=== PATIENT | male | born 1935 | race Caucasian/White ===

== ENCOUNTER → 2017-10-16 | Outpatient (CLI) | payer OTHER | LOC: FIMAGING 08:36 | PROVIDERS: ATTEND Physician Assistant | DX: M54.16 Radiculopathy, lumbar region (principal); M43.16 Spondylolisthesis, lumbar region; M51.36 Other intervertebral disc degeneration, lumbar region ==

== ENCOUNTER 2018-07-26 12:15 | Inpatient (IN) | payer OTHER ==
[2018-09-26] MEDS ORDERED: LR 1,000 ML IV ONE (05:55)
[2018-09-26 06:41] LABS: PLATELET COUNT 279 10^3/uL (150-400)
[2018-09-26] MEDS ORDERED: CHLORHEXIDINE GLUC HIBICLENS 118 ML BTL TP ONE (06:53)
[2018-09-26] MEDS ORDERED: BUPIVACAINE 0.25% 30 ML SDV ONE (06:53)
[2018-09-26] MEDS ORDERED: BACITRACIN 50,000 UNITS/10 ML SYR IRR ONE ×2 (06:54→10:59)
[2018-09-26] MEDS ORDERED: THROMBIN (BOVINE) 5,000 UNIT VIAL TP ONE (06:54)
[2018-09-26] MEDS ORDERED: DEPO METHYLPREDNISOLONE 40 MG/ML SDV ONE (06:54)
[2018-09-26] MEDS ORDERED: EPINEPHrine 1 MG/ML INJ ONE (06:55)
[2018-09-26] MEDS ORDERED: GABAPENTIN 300 MG CAP PO ONE (06:59)
[2018-09-26] MEDS ORDERED: ceFAZolin 2 GM/DEXTROSE 100 ML IV ONE (06:59)
[2018-09-26] MEDS ORDERED: ACETAMINOPHEN 500 MG TAB PO ONE (06:59)
--- NOTE | 2018-09-26 07:02 | PDHPUP ---
History & Physical Update H&P update statement: This history and physical update is based on an assessment of the patient which was completed after admission or registration (within 24 hours), but prior to the surgery/procedure. H&P update: H&P reviewed & patient examined, no change in patient's condition since H&P completed
--- NOTE | 2018-09-26 07:06 | PDANEPAE ---
ANE History of Present Illness 83 y/o male here for lumbar decompression for back pain. ANE Past Medical History - Cardiovascular History Hx Hypertension: Yes Hx Arrhythmias: No Hx Chest Pain: No Hx Coronary Artery / Peripheral Vascular Disease: Yes Hx CHF / Valvular Disease: Yes Hx Palpitations: No Cardiovascular History Comment: AORTIC STENOSIS - Pulmonary History Hx COPD: No Hx Asthma/Reactive Airway Disease: No Hx Recent Upper Respiratory Infection: No Hx Oxygen in Use at Home: No Hx Sleep Apnea: No Sleep Apnea Screening Result - Last Documented: Positive - Neurologic History Hx Cerebrovascular Accident: No Hx Seizures: No Hx Dementia: No - Endocrine History Hx Diabetes: No - Renal History Hx Renal Disorders: No - Liver History Hx Hepatic Disorders: No - Neurological & Psychiatric Hx Hx Neurological and Psychiatric Disorders: Yes Neurological / Psychiatric History Comment: DEPRESSION/ANXIETY - Cancer History Hx Cancer: No - Congenital Disorder History Hx Congenital Disorders: No - GI History Hx Gastrointestinal Disorders: No - Other Health History Other Health History: SPINAL STENOSIS. N/T LYNETTE LEGS/FEET RT WORSE. MISSING UPPER LT FRONT TOOTH - Chronic Pain History Chronic Pain: Yes (LOWER LUMBAR AND LYNETTE LEGS) - Surgical History Prior Surgeries: LYNETTE TOTAL HIP. LYNETTE ING HERNIA. LT CATARACT ANE Review of Systems Review of Systems: - Exercise capacity Exercise capacity: >=4 METS METS (RN): 3 METS ANE Patient History - Allergies Allergies/Adverse Reactions: No Allergies [NKDA] Allergy (Verified 10/06/16 02:41) - Home Medications Home Medications: Hydrochlorothiazide [HCTZ (*)] 25 mg PO SUMOTUSA@08 10/06/16 [Last Taken ] Lisinopril 20 mg PO BID 10/06/16 [Last Taken 09/25/18] - NPO status NPO Since - Liquids (Date): 09/25/18 NPO Since - Liquids (Time): 18:00 NPO Since - Solids (Date): 09/25/18 NPO Since - Solids (Time): 18:00 - Smoking Hx Smoking Status: Never smoked ANE Labs/Vital Signs - Labs Result Diagrams: 09/26/18 06:25 09/26/18 06:25 - Vital Signs Blood Pressure: 127/78 Heart Rate: 76 Respiratory Rate: 16 O2 Sat (%): 93 Height: 170.18 cm Weight: 73.482 kg ANE Physical Exam - Airway Neck exam: FROM Mallampati Score: Class 3 - Pulmonary Pulmonary: clear to auscultation - Cardiovascular Cardiovascular: systolic murmur - ASA Status ASA Status: IV ANE Anesthesia Plan Lines/Monitors: arterial line (Discussed risks and benefits with specific focus on his severe aortic stenosis. Pt desires to proceed.)
[2018-09-26] MEDS ORDERED: fentaNYL 100 MCG/2 ML INJ ONE (07:16)
[2018-09-26] MEDS ORDERED: DEXMEDETOMIDINE HCL 400 MCG in NS 100 ML IV SCH (07:30)
[2018-09-26] MEDS ORDERED: oxyCODONE IR 5 MG TAB PO PRN (07:38)
[2018-09-26] MEDS ORDERED: LACTULOSE 20 GM/30 ML UDCUP PO PRN (07:38)
[2018-09-26] MEDS ORDERED: BISACODYL 10 MG SUPP PR PRN (07:38)
[2018-09-26] MEDS ORDERED: ONDANSETRON 4 MG/2 ML VIAL IVP PRN (07:38)
[2018-09-26] MEDS ORDERED: ONDANSETRON DISINTEGRATING 4 MG TAB PO PRN (07:38)
[2018-09-26] MEDS ORDERED: diphenhydrAMINE 25 MG CAP PO PRN (07:38)
[2018-09-26] MEDS ORDERED: METHOCARBAMOL 750 MG TAB PO PRN (07:38)
[2018-09-26] MEDS ORDERED: MAGNESIUM HYDROXIDE 30 ML UDCUP PO PRN (07:38)
[2018-09-26] MEDS ORDERED: POLYETHYLENE GLYCOL 3350 17 GM PKT PO PRN (07:38)
[2018-09-26] MEDS ORDERED: PROPOFOL/EMULSION 500 MG/50 ML BOTTLE IV ONE (08:15)
[2018-09-26] MEDS ORDERED: PROPOFOL 200 MG/20 ML VIAL ONE (10:10)
[2018-09-26] MEDS ORDERED: fentaNYL 100 MCG/2 ML INJ IVP PRN (10:57)
[2018-09-26] MEDS ORDERED: PROMETHAZINE HCL 25 MG/ML INJ IVP PRN (10:57)
[2018-09-26] MEDS ORDERED: LR 500 ML IV PRN (10:57)
[2018-09-26] MEDS ORDERED: NALOXONE HCL 0.4 MG/ML INJ IVP PRN (10:57)
[2018-09-26] MEDS ORDERED: MEPERIDINE 25 MG/0.5 ML AMP IVP PRN (10:57)
--- NOTE | 2018-09-26 11:39 | POSTOPPROG ---
Post Op Note Date of Operation: 09/26/18 Surgeon: Mago Castaneda Wound Care Nurse: Ruby Montano NP Anesthesiologist: Dr Gonzalez Anesthesia: GET(General Endotracheal) Pre-op Diagnosis: Lumbar stenosis Procedure: L3-4, L4-5, L5-S1 Laminectomy Inf/Abcess present in the surg proc area at time of surgery?: No Depth: Deep Incisional (Fascial) EBL: 100-500 Total fluids administered: see anesthesia Complications: none Date of Surgery: 09/26/18 Post Op Day: 0 Assessment/Plan: Assessment: 83 yr old M s/p L3-4, L4-5, L5-S1 laminectomy for low back pain and right>left leg pain Plan: -Admit med [facility] [place] for obs -PT/OT -Pain management -Please call neurosurgery with any questions/concerns Subjective: waking up in PACU Objective: waking up in PACU No facial droop LYNNE x4 5/5 BUE, BLE Sensation intact to light touch BLE Dressing CDI Appropriate Neuro Check Frequency Ordered: Yes
[2018-09-26] MEDS: PHENYLEPHRINE HCL 100 MCG/ML SYR IVP PRN ×8 (11:50→12:35)
[2018-09-26] MEDS ORDERED: PHENYLEPHRINE HCL 100 MCG/ML SYR ONE (11:55)
[2018-09-26] MEDS ORDERED: PHENYLEPHRINE HCL 50 MG in D5W 250 ML IV SCH (12:00)
[2018-09-26] MEDS: PHENYLEPHRINE HCL 50 MG in NS 250 ML IV SCH (12:41)
--- NOTE | 2018-09-26 13:53 | GOP ---
DATE OF OPERATION: 09/26/2018 SURGEON: Alonzo Castaneda MD NEUROSURGEON: Alonzo Castaneda MD DOCUMENT MANAGEMENT SPECIALIST: Ruby Montano, Nurse Practitioner PREOPERATIVE DIAGNOSIS: Severe lumbar spondylosis, severe lumbar stenosis, bilateral lumbosacral rad iculopathy, right worse than left. POSTOPERATIVE DIAGNOSIS: Severe lumbar spondylosis, severe lumbar stenosis, bilateral lumbosacral ra diculopathy, right worse than left. PROCEDURE PERFORMED: L3-4, L4-5, L5-S1 bilateral laminectomies with decompression of the bilateral r ecesses and foramen at L3-4, 4-5, 5-1 ([id number], [id number] x2), microscope. FINDINGS: The patient did appear to have a small pars defect on the left at L5. SPECIMENS: None. ESTIMATED BLOOD LOSS: About 150 cc. INDICATIONS: The patient is an elderly gentleman in his 80s who had terrible bilateral lumbosacral r adiculopathy and the right side was much worse than the left. An MRI demonstrated findings throughou t the lumbar spine really at every level L1-2, 2-3, 3-4, 4-5, 5-1. He had significant stenosis at L3 -4, 4-5, 5-1, and there was actually very severe stenosis at L2-3 as well, but it really was not comp arable to what we saw at L3-4, 4-5, 5-1. I contemplated adding this level as well, but I thought morgan lly a 4 level laminectomy was a bit much for him given his age. The risks of continued symptoms nerv e injury, spinal fluid leak was discussed. He knew there was a chance that surgery would fail to giv e him benefit, and certainly, there was significant foraminal stenosis, worse on the left at L L3-4 a nd on the right at L4-5, 5-1, and with these findings, the success would be higher if one considered instrumented fusion, but given his advanced age, I thought it was best to try to avoid this. He knew the plan was simply to try to achieve what we could with the simple operation with decompressions al one and he did want to proceed with this. DESCRIPTION OF PROCEDURE: The patient was taken to the operating room, placed in supine position. G eneral anesthesia was begun. He was flipped prone onto the Geo frame. Care was taken to pad all points of contact. His back was sterilely prepped and draped in usual fashion. Localizing x-ray was taken. We made a midline incision from the spinous process of L2 to the spinous process of S1. The subcutaneous tissue was dissected using Bovie cautery down to the fascia and a s ubperiosteal dissection was made down the lamina of L3, L4, L5, and S1. Self-retaining retractors pl aced. Operating microscope was introduced. We removed the complete lamina of L4 and L5 and the infe rior lamina of L3. We performed bilateral medial facetectomies. As we working on the left at L5-S1, there was the hint that the IAP of L5 was not attached to the pedicle. I did not expose the entire pars interarticularis, it just simply wobbled as one was drilling in that area. We went ahead and continued with our decompression, performed bilateral medial facetectomies there an d each of the other levels. There was really severe stenosis. 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 The fat was stuck to the dura in multiple locations a nd it made decompressing more difficult because as we would insert our Kerrison under the compressive elements, the fat many times would be carried with Kerrison, but the dura was very stuck to the fat. We took great care and we were able to avoid a durotomy, and we eventually took out a lot of this e pidural fat. There was very significant compression on the right side at L5-S1, L4-5, and very severe left-sided s tenosis at L3-4, and we really got great decompressions on each side. We shot a final x-ray confirmi ng the extent of the decompression, and then closed the incision in multiple layers using Vicryl sutu res. Steri-Strips were applied to the skin, and the patient was reversed from anesthesia, extubated, and transferred to recovery room in stable condition. There were no complications. COMPLICATIONS: None. /[id number]/MODL
[2018-09-26] MEDS: ACETAMINOPHEN 500 MG TAB PO SCH ×2 (13:54→21:00)
[2018-09-26] MEDS: NS 1,000 ML IV SCH (13:56)
--- NOTE | 2018-09-26 14:44 | POSTANESTH ---
Post Anesthetic Evaluation Respiratory Status: Normal, Stable Level of Consciousness/Mental Status: Can Participate in Eval, Alert and Oriented Pain Control: Adequate, Prn Tx Ordered Nausea/Vomiting Control: Adequate, Prn Tx Ordered Complications Possibly Related to Anesthesia: None Noted (Pt with asymptomatic hypotension, unclear etiology. Giving IVF's. Will start phenylephrine infusion given that the patient has severe . Denies chest pain/dypsnea. Appears comfortable.)
[2018-09-26] MEDS: SENNOSIDES/DOCUSATE SODIUM TAB PO SCH ×2 (14:59→20:59)
[2018-09-26] MEDS: FAMOTIDINE 20 MG TAB PO SCH ×2 (15:00→20:58)
[2018-09-26] MEDS: CEFUROXIME 1,500 MG in NS 50 ML IV SCH ×2 (16:13→23:51)
[2018-09-26] MEDS ORDERED: NS BOLUS 500 ML (Wide open) IV ONE (17:30)
[2018-09-26] MEDS ORDERED: ALTEPLASE 2 MG VIAL IVP PRN (17:44)
--- NOTE | 2018-09-26 20:01 | GCON ---
CRITICAL CARE CONSULTATION DATE OF CONSULTATION: 09/26/2018 HISTORY OF PRESENT ILLNESS: This patient is an 83-year-old male with a known history of severe aorti c stenosis that has been quite stable for at least a year who has also been dealing with significant sciatica and radiculopathy who has tried multiple injections in the past and subsequently underwent a n L3-S1 laminectomy and decompression today. The surgery itself was uncomplicated. The patient was extubated and brought to the intensive care unit, but his blood pressure was a little bit low postope ratively. He was started on a phenylephrine drip with a goal systolic blood pressure of about 120. He normally has hypertension and takes lisinopril as well as hydrochlorothiazide. It is not clear to me if he took those medications today. He remains on about 80 mg of phenylephrine at this time. He has a mean arterial pressure of about 61 with a systolic of about 108. He is asymptomatic with this , but his blood pressure apparently dropped to some unknown amount when he sat up in bed. He denies any significant postoperative pain at this time. There is no chest pain, palpitations, or syncope si nce he arrived from surgery and feels quite well. No shortness of breath or cough as well. REVIEW OF SYSTEMS: Otherwise, negative. PAST MEDICAL HISTORY: 1. Aortic stenosis as described above. He had an echocardiogram on 08/29/2018, showing severe aorti c stenosis with a peak pressure of about 61, a mean of 30, but an ejection fraction of 59% as well as diastolic dysfunction. 2. Spinal stenosis. 3. Radiculopathy as described above. 4. BPH. 5. Coronary artery disease. 6. Hypertension. 7. Peripheral neuropathy. 8. Pneumonia in the past. 9. Pulmonary nodule. SOCIAL HISTORY: He is a previous smoker, but not current. No recreational drugs, but occasional alc ohol. FAMILY HISTORY: Cancer. MEDICATIONS: At this time include: 1. Dulcolax. 2. Cefuroxime. 3. Benadryl p.r.n. 4. Lovenox. 5. Pepcid. 6. Hydrochlorothiazide to start tomorrow. 7. Lactulose p.r.n. 8. Lisinopril to start today which is being held. 9. Robaxin. 10. Morphine. 11. Zofran. 12. Oxycodone. 13. Phenylephrine. 14. MiraLAX. 15. Senokot. 16. Normal saline. PHYSICAL EXAM: VITAL SIGNS: He was afebrile. He had a blood pressure of 108/70 on phenylephrine. Heart rate was in the 80s, respirations in the 20s. Oxygen saturation was 98% on room air. GENERAL: He is a very pleasant man in no apparent distress. Awake and alert, oriented x3, able to speak in full sentences but not using accessory muscles for breathing. HEENT: Pupils equally round and react radha to light, nonicteric and noninjected. Mucous membranes are moist without erythema or exudate. N FORTUNATO: Supple without adenopathy or jugular vein distention. LUNGS: Breath sounds were clear to ausc ultation bilaterally without wheezes, rubs, or rales. HEART: Regular rate and rhythm with an obviou s systolic murmur. ABDOMEN: Otherwise, soft, nontender, nondistended without hepatosplenomegaly. E XTREMITIES: No clubbing, cyanosis, or edema. NEUROLOGIC: Exam nonfocal including cranial nerves an d deep tendon reflexes. SKIN: Warm and dry without evidence of rash. OBJECTIVE DATA: Preoperative labs with hematocrit of 35, normal white count and platelets. BMP was also normal. Also reviewed his pre-hospital records in some detail. ASSESSMENT AND PLAN: 1. Hypotension. This certainly is likely to be related to hypovolemia or prolonged effects of anest hesia. I see no evidence to support adrenal insufficiency or an acute coronary syndrome at this time . Certainly, not septic shock. Because of his aortic stenosis, advanced age, and diastolic dysfunct ion, I think we need to be gentle with fluids; although with the aortic stenosis, it would be smarter to error in slightly hypervolemic rather than hypovolemic side to minimize increasing his gradient a cross his valve. Subsequently, we will start with NICOM and use 250 mL boluses of normal saline. I do not think blood is an issue here since his estimated blood loss was only 150. His blood pressure parameters have been set by Neurosurgery looking for a systolic of at least 120. We will try to get there with some volume. Phenylephrine, I think is an adequate drug for this. He did preop clearance from Cardiology and no valvular surgery was recommended prior to this. 2. Hypertension. Obviously, hold his hydrochlorothiazide and lisinopril for now until his blood pre ssure goals have been met and he is off his pressors. 3. Status post back surgery. Other than hypotension, he appears to be quite stable at this time and, hopefully, this will result i n significant pain control for him. A total of about 35 minutes of critical care time was required for this patient. /[id number]/MODL
[2018-09-26] MEDS: LISINOPRIL 20 MG TAB PO SCH (20:50)
[2018-09-27] MEDS: NS 1,000 ML IV SCH (01:15)
[2018-09-27] MEDS: PHENYLEPHRINE HCL 50 MG in NS 250 ML IV SCH (03:15)
[2018-09-27 04:29] LABS: PLATELET COUNT 223 10^3/uL (150-400)
[2018-09-27] MEDS ORDERED: CEPACOL LOZENGE PO PRN (05:30)
[2018-09-27] MEDS: ACETAMINOPHEN 500 MG TAB PO SCH ×3 (05:43→21:08)
[2018-09-27] MEDS ORDERED: HYDROCHLOROTHIAZIDE 25 MG TAB PO SCH (08:00)
--- NOTE | 2018-09-27 08:33 | NEUSURGPN ---
Assessment/Plan: Assessment: 83 yr old M s/p L3-4, L4-5, L5-S1 laminectomy for low back pain and right>left leg pain POD1 Plan: -Admit med surgery -PT/OT -Pain management -Wean pressors -May transfer to the floor later today -Please call neurosurgery with any questions/concerns Subjective: low back tenderness, states leg pain has improved Objective: waking up in PACU No facial droop LYNNE x4 5/5 BUE, BLE Sensation intact to light touch BLE Dressing CDI - Physician Discussed Patient with : [facility] Physical Exam - Vitals, I&O, Labs I and O 09/26/18 09/27/18 09/28/18 05:59 05:59 05:59 Intake Total 5167.4 Output Total 1550 275 Balance 3617.4 -275 Weight 73.482 kg Intake: Oral (ml) 1540 IV Intake (ml) 2450 IV Infused (ml) 1177.4 Cefuroxime 1,500 mg In Ns 50 50 ml @ 200 mls/hr IV Q8H SANAM Rx#:[id number] Ns 1,000 ml @ 75 mls/hr 846 IV CONT SANAM Rx#: [id number] Phenylephrine HCl 50 mg 281.4 In D5w 250 ml @ Titrate IV CONT SANAM Rx#: [id number] Output: Urine (ml) 1400 275 Bedside Commode 1400 275 Urinal 0 Estimated Blood Loss (ml) 150 Other: Number of Voids Bedside Commode 1 Post Void Residual Scan Volume (ml) Bedside Commode 323 Vital Signs Temp Pulse Resp BP Pulse Ox 37.4 C 73 14 126/58 H 95 09/27/18 04:00 09/27/18 06:00 09/27/18 06:00 09/27/18 06:00 09/27/18 06:00 Laboratory Results 09/27/18 04:10 09/27/18 04:10 ICD10 Worksheet Patient Problems: Problems Problem Status Onset Aortic stenosis Acute Elevated troponin Acute Mitral regurgitation Acute Pneumonia Acute Sepsis Acute
[2018-09-27] MEDS: SENNOSIDES/DOCUSATE SODIUM TAB PO SCH ×2 (08:59→21:07)
[2018-09-27] MEDS: FAMOTIDINE 20 MG TAB PO SCH ×2 (09:00→21:08)
--- NOTE | 2018-09-27 09:28 | ASMTCMCOM ---
CM Note CM Note Notes: 83yo male admitted for lumbar stenosis. He has a Hx of Aortic stenosis, CAD, BPH, HTN, PN, Radiculopathy and a former smoker. Patient had L 3/4, 4/5, L5-S1 Lami. Therapies to eval for discharge needs. CM to follow. Date Signed: 09/27/2018 09:27 AM Electronically Signed By:Cara Callaway LCSW
[2018-09-27] MEDS: LISINOPRIL 20 MG TAB PO SCH (10:19)
--- NOTE | 2018-09-27 13:35 | PDINTPN ---
Concession Attendant Progress Note Assessment/Plan: 83 M with known severe aortic stenosis and intractable back pain and radiculopathy s/p L3-S1 decompression laminectomy 09/26 complicated by post op hypotension requiring low dose phenylephrine that responded to IVF. * Hypotension- likely related to volume shifts from surgery. No evidence of blood loss, ACS, adrenal insufficiency, sepsis. Irineo nearly off and anticipate this will come off today * - assuming hemodynamic stability, can resume home meds. * likely to floor this afternoon Subjective: feels great without complaints Objective: Vital Signs Temp Pulse Resp BP Pulse Ox 36.9 C 73 20 90/38 L 97 09/27/18 08:00 09/27/18 13:00 09/27/18 13:00 09/27/18 13:00 09/27/18 13:00 Laboratory Results 09/27/18 04:10 09/27/18 04:10 09/26/18 09/27/18 09/28/18 05:59 05:59 05:59 Intake Total 5167.4 Output Total 1550 275 Balance 3617.4 -275 Physical Exam - Physical Exam General Appearance: WD/WN, alert, no apparent distress EENT: PERRL/EOMI, No scleral icterus (R), No scleral icterus (L) Neck: non-tender, supple Respiratory: lungs clear, normal breath sounds, No respiratory distress, No accessory muscle use Cardiac/Chest: regular rate, rhythm, systolic murmur, No edema Abdomen: non-tender, soft, No distended Skin: normal color, warm/dry, No cyanosis Lymphatic: no adenopathy Extremities: No pedal edema Neuro/Psych: alert, normal mood/affect, oriented x 3 ICD10 Worksheet Patient Problems: Problems Problem Status Onset Aortic stenosis Acute Elevated troponin Acute Mitral regurgitation Acute Pneumonia Acute Sepsis Acute
--- NOTE | 2018-09-27 15:22 | ASMTCMCOM ---
CM Note CM Note Notes: Patient and live in [place], [place]. They would like to go to the SNF in [facility]. Sent a referral to the [facility] SNF and left a message for their admissions-Selam [phone]. Date Signed: 09/27/2018 03:21 PM Electronically Signed By:Cara Callaway LCSW
--- NOTE | 2018-09-27 16:52 | PDMN ---
Medical Necessity Medical necessity: [facility] S830 Lumbar Laminectomy: 83 yo s/p lumbar lami, initially OBS but during post op course developed hypotension needing vasopressors to maintain BP. Change to IP status per MD order 08/27/18 @1545 as pt still on IV vasopressors, H&H did drop to 10.4/294 rom 12.8/35.8, requires another MN to wean off pressors, PT/OT eval and pain management. Hx spinal stenois, radiculopathy, BPH, CAD, HTN, periph neuropathy, pneumonia, pulm nodule
[2018-09-28] MEDS: ACETAMINOPHEN 500 MG TAB PO SCH (05:45)
--- NOTE | 2018-09-28 07:31 | NEUSURGPN ---
Date of Surgery: 09/26/18 Post Op Day: 2 Assessment/Plan: Assessment: 83 yr old M s/p L3-4, L4-5, L5-S1 laminectomy for low back pain and right>left leg pain POD#2 Plan: -Patient off akira gtt since 2am, BP stable -PT/OT -Pain management-expected incisional pain, BLE pain improved since surgery -Patient may dc home today with home health care vs SNF pending PT recommendation -Patient seen by Dr Castaneda as well -Please call neurosurgery with any questions/concerns Subjective: Doing well, expected lower back pain. Leg pain improved Objective: AxO x4 PERRLA MAEx4 5/5 BUE, BLE Dressing CDI Neuro Check Frequency: per routine Urinary Catheter in Place: No - Physician Patient Seen by : [facility] Physical Exam - Vitals, I&O, Labs I and O 09/27/18 09/28/18 09/29/18 05:59 05:59 05:59 Intake Total 5167.4 1447 Output Total 1550 1075 Balance 3617.4 372 Weight 73.482 kg Intake: Oral (ml) 1540 300 IV Intake (ml) 2450 IV Infused (ml) 1177.4 1147 Cefuroxime 1,500 mg In Ns 50 50 ml @ 200 mls/hr IV Q8H SANAM Rx#:[id number] Ns 1,000 ml @ 75 mls/hr 846 1046 IV CONT SANAM Rx#: [id number] Phenylephrine HCl 50 mg 281.4 101 In D5w 250 ml @ Titrate IV CONT SANAM Rx#: [id number] Output: Urine (ml) 1400 1075 Bedside Commode 1400 1075 Urinal 0 Estimated Blood Loss (ml) 150 Other: Number of Voids Bedside Commode 1 4 Post Void Residual Scan Volume (ml) Bedside Commode 323 Vital Signs Temp Pulse Resp BP Pulse Ox 36.6 C 80 18 127/56 H 98 09/27/18 20:00 09/28/18 05:48 09/28/18 05:48 09/28/18 05:48 09/28/18 05:48 Laboratory Results 09/27/18 04:10 09/27/18 04:10 ICD10 Worksheet Patient Problems: Problems Problem Status Onset Aortic stenosis Acute Elevated troponin Acute Mitral regurgitation Acute Pneumonia Acute Sepsis Acute
--- NOTE | 2018-09-28 07:37 | PDIAF ---
- Diagnosis Diagnosis: Lumbar stenosis, S/P L3-4, L4-5, L5-S1 laminectomy Code Status: Full Code - Medication Management Discharge Medications: electronically signed and located in the Home Medication List. PICC Care - Routine: N/A - Orders Services needed: Home Care, Physical Therapy, Occupational Therapy Home Care Face to Face: I certify that this patient was under my care and that I had the required [id number] encounter meeting the encounter requirements on the discharge day. My findings support the fact that the patient is homebound as defined in Home Care Face to Face Continued: CMS Chapter 7 Medicare Benefits Manual 30.1.1 , The condition of the patient is such that there exists a normal inability to leave home and consequently, leaving home would require a considerable and taxing effort. Isolation Type: None Diet Recommendation: no restrictions on diet Diet Texture: Regular Texture Diet Teague: Not applicable Wound Care Instructions: Remove outer dressing 09/29/18. Leave steri strips in place Activity/Weight Bearing Restrictions: Do not lift greater than 10 pounds. No bending or twisting at the waist Additional Instructions: No bending or twisting at waist Do no lift greater than 10 pounds Ok to remove outer dressing tomorrow 09/29/[address] Ok to shower 09/29/18 - Follow Up Care Current Providers and Referrals: Chris Morrow MD [Primary Care Provider] - Mago Castaneda MD [Medical Doctor] - follow up in 2 weeks
[2018-09-28 08:25] VITALS: BP 125/62
[2018-09-28] MEDS: SENNOSIDES/DOCUSATE SODIUM TAB PO SCH (08:47)
[2018-09-28] MEDS: FAMOTIDINE 20 MG TAB PO SCH (08:47)
--- NOTE | 2018-09-28 11:10 | ASMTDCNOTE ---
Case Management Discharge Discharge Order Complete? Answers: Yes Patient to Obtain Answers: Independently Medications Transportation Arranged Answers: Family/Friends Transport will Pick (Date 09/28/2018 12:00 AM & Time) Faxed Final Orders Answers: Yes Notes: [facility] Agency/Facility Transfer Answers: Yes Notes: [facility] Report Printed & Faxed to Receiving Agency Family Notified Answers: Yes Notes: , Khadra Discharge Comments Notes: Patient is ready for d/c. Therapies recommended SNF rehab, however, patient prefers to do home health care.Referral was sent via [email or web address] [facility] ([phone]) [facility] accepted patient for services. Patient's , Khadra also wanted referrals for home care services like [facility] or [facility]. Agencies and phone numbers were provided for her. Patient will be getting PT/OT. Discharge summaries were forwarded along with agency facility transfer form. Patient's PICC line will be pulled prior to d/c. No further needs. Date Signed: 09/28/2018 11:09 AM Electronically Signed By:Lilian Leslie LCSW
--- NOTE | 2018-09-28 11:13 | ASDISCHSUM ---
Discharge Information Plan Status:Home with Home Health Medically Cleared to Leave:09/27/2018 Discharge Date:09/27/2018 CM D/C Disposition:[facility] D/C Disposition:[id number] Projected Discharge Date:09/28/2018 11:00 AM Transportation at D/C:Family Discharge Delay Reason: Follow-Up Date:09/28/2018 11:00 AM Discharge Slot:1 - 8:01 am - 12:00 noon Final Diagnosis:Lumbar stenosis Placement Information Referral Type:*Retirement/SNF Referral ID:[id number] Provider Name: Address 1: Phone Number: Address 2: Fax Number: City: Selection Factors: State: Referral Type:*Home Health Care Services Referral ID:[facility]-[id number] Provider Name:[facility] Address 1:[address] [place] [address] [place] Address 2: City:[place] Selection Factors: State:[place] Patient Contact Information Contact Name:ARACELY Relationship: Address:[address] City:[place] Alternate Phone: [facility]/Zip Code:[place] [address] Email: Financial Information Financial Class:Medicare Primary Plan Desc:MEDICARE INPATIENT Primary Plan Number:[id number] Secondary Plan Desc:[facility] Secondary Plan Number:[id number] Assessment Information LACE LACE Length of stay for Answers: 1 day current admission Acuity / Level of Answers: Yes Care: Did the patient have an inpatient admission? Comorbidities - select Answers: Congestive heart failure all that apply Coronary Artery Disease Opioid dependence / Chronic pain Other Notes: HTN # of Emergency department Answers: 0 visits in the last 6 months Social determinants Answers: Mental health diagnosis (anxiety, depression, pers onality disorders, etc.) Score: 16 Date Signed: 09/28/2018 11:12 AM Electronically Signed By:Lilian Anuj, FORM LAYER [facility] CM Progress Note CM Note CM Note Notes: 83yo male admitted for lumbar stenosis. He has a Hx of Aortic stenosis, CAD, BPH, HTN, PN, Radiculopathy and a former smoker. Patient had L 3/4, 4/5, L5-S1 Lami. Therapies to eval for discharge needs. CM to follow. Date Signed: 09/27/2018 09:27 AM Electronically Signed By:Cara Callaway LCSW [facility] CM Progress Note CM Note CM Note Notes: Patient and live in [place], [place]. They would like to go to the SNF in [facility]. Sent a referral to the [facility] SNF and left a message for their admissions-Sel[facility] [phone]. Date Signed: 09/27/2018 03:21 PM Electronically Signed By:Cara Callaway LCSW Case Management Discharge Plan Note Case Management Discharge Discharge Order Complete? Answers: Yes Patient to Obtain Answers: Independently Medications Transportation Arranged Answers: Family/Friends Transport will Pick (Date 09/28/2018 12:00 AM & Time) Faxed Final Orders Answers: Yes Notes: [facility] Agency/Facility Transfer Answers: Yes Notes: [facility] Report Printed & Faxed to Receiving Agency Family Notified Answers: Yes Notes: Khadra Discharge Comments Notes: Patient is ready for d/c. Therapies recommended SNF rehab, however, patient prefers to do home health care.[facility] via [phone] for services. Patient's , Khadra also wanted referrals for home care services like [facility] or [facility]. Agencies and phone numbers were provided for her. Patient will be getting PT/OT. Discharge summaries were forwarded along with agency facility transfer form. Patient's PICC line will be pulled prior to d/c. No further needs. Date Signed: 09/28/2018 11:09 AM Electronically Signed By:Lilian Leslie LCSW Intervention Information Intervention Type:*CROUCH-Signed Date of Service:09/27/2018 02:10 PM Patient Type:Observation Staff Member:Nehal Luo Hours: Discipline: Severity: Comment:
[2018-09-29] MEDS ORDERED: ENOXAPARIN 40 MG/0.4 ML SYR SC SCH (09:00)
--- NOTE | 2018-10-01 22:32 | GDS ---
PRIMARY DIAGNOSIS: Lumbar stenosis. OPERATIONS AND PROCEDURES: September 26, 2018, the patient underwent L3-4, L4-5, L5-S1 laminectomy wit steff Castaneda. HOSPITAL COURSE: [facility] L3-4, L 4-5, L5-S1 laminectomy with Dr. Castaneda. There were no known complications from the procedure and the patient was transferred in stable condition from the OR to PACU, and then to the postsurgical floor. While on the floor, the patient received Physical Therapy and Occupational Therapy as well as pain management. The patient was on a phenylephrine drip postoperatively where he was managed in the ICU. The patient was able to wean off phenylephrine postop day 2 in the electric motor repairer and maintain stabl e blood pressures throughout the day. The patient was in stable condition and subsequently discharge d to home with home health care on September 28, 2018. The patient will follow up in the office with Gayle Castaneda in 2 weeks for postoperative visit. He has been instructed to contact the office with any questions or concerns at [phone]. CONSULTS: Physical Therapy, Occupational Therapy, Upholstery Cleaner. DISCHARGE CONDITION: Stable. DISCHARGE MEDICATIONS: Please see medication reconciliation. DISCHARGE INSTRUCTIONS: Patient is to avoid any bending or lifting at the waist. The patient was in structed not to lift greater than 10 pounds for 2 weeks. Okay for the patient to shower on postopera tive day 3 and remove the outer dressing from his incision. The patient was instructed to leave Ster i-Strips in place and follow up for his 2-week postoperative visit. Patient is to avoid any submersi on of his incision for the next 2-3 weeks. Patient will call our office with any questions or concer ns prior to his 2-week postoperative visit. /[id number]/MODL
== END 2018-09-28 11:15 | disposition home health service (06) | DRG 520 ==
LOC: F3N 09-26 05:34 → F2N 09-26 13:09 → OBSVTOIN 09-27 15:45
PROVIDERS: ADMIT Neurological Surgery; ATTEND Neurological Surgery
PROC: 00NY0ZZ Release Lumbar Spinal Cord, Open Approach (ICD-10-PCS; principal; 2018-09-26 07:15)
PROC: 01NB0ZZ Release Lumbar Nerve, Open Approach (ICD-10-PCS; principal; 2018-09-26 07:15)
DX: M43.16 Spondylolisthesis, lumbar region (principal); M48.061 Spinal stenosis, lumbar region without neurogenic claudication; M54.17 Radiculopathy, lumbosacral region; I10 Essential (primary) hypertension; G62.9 Polyneuropathy, unspecified; R91.1 Solitary pulmonary nodule; Z96.643 Presence of artificial hip joint, bilateral
CPT/HCPCS: 97116-GP; 97162-GP; 97165-GO; 97530-GO; 97535-GO; C1751; G8978-GP-CK; G8979-GP-CI; G8987-GO-CI; G8987-GO-CK; G8988-GO-CI; G8989-GO-CI; J0171; J0690; J0697; J1030; J2370; J2704; J3010

== ENCOUNTER → 2018-08-29 | Outpatient (CLI) | payer OTHER | LOC: BHCLAF 11:30 | PROVIDERS: ATTEND Internal Medicine Cardiovascular Disease | DX: I35.0 Nonrheumatic aortic (valve) stenosis (principal) | CPT/HCPCS: 93306-PO ==

== ENCOUNTER 2018-10-25 07:30 | Observation (INO) | payer OTHER ==
[2018-10-25] MEDS ORDERED: NS 1,000 ML IV ONE (07:32)
[2018-10-25] MEDS ORDERED: ceFAZolin 2 GM/DEXTROSE 100 ML IV ONE (07:32)
[2018-10-25] MEDS ORDERED: DIAZEPAM 5 MG TAB PO ONE (07:32)
[2018-10-25] MEDS ORDERED: diphenhydrAMINE 25 MG CAP PO ONE (07:32)
[2018-10-25] MEDS ORDERED: BACITRACIN IRRIGATION/NS 50,000 UNITS/1,000 ML BTL IRR ONE (07:32)
[2018-10-25 08:06] LABS: PLATELET COUNT 210 10^3/uL (150-400)
[2018-10-25] MEDS ORDERED: LIDOCAINE 1% 300 MG/30 ML SDV ONE (08:14)
[2018-10-25] MEDS ORDERED: IOPAMIDOL (ISOVUE-300) 50 ML VIAL ONE (08:14)
[2018-10-25 08:15] LABS: INR 1.12 (0.83-1.16); PROTIME(PATIENT) 14.6 SEC (12.0-15.0)
[2018-10-25] MEDS ORDERED: MIDAZOLAM 2 MG/2 ML VIAL ONE ×2 (08:15→10:35)
[2018-10-25] MEDS ORDERED: BUPIVACAINE 0.5% 30 ML SDV ONE (08:15)
[2018-10-25] MEDS ORDERED: LIDO/EPI 1% **for epidural** 30 ML SDV ONE (08:15)
[2018-10-25] MEDS ORDERED: fentaNYL 100 MCG/2 ML INJ ONE ×2 (08:15→10:52)
--- NOTE | 2018-10-25 09:51 | PDPROPOC ---
Sedation Plan of Care Sedation Plan of Care: vital signs stable, mental status noted, patient educated of risks, benefits, alternatives, patient can tolerate sedation ASA Classification: ASA 2 Planned drugs: fentanyl, midazolam Mallampati Score: Class 1 Mallampati Reference Image: Patient passed 3-3-2 rule?: Yes
--- NOTE | 2018-10-25 11:22 | PDCTREPORT ---
Cardiothoracic Procedure Rpt Cardiothoracic Procedure Report: Procedure: Implantation of a dual-chamber pacemaker Indications: 2-1 av block After obtaining informed consent patient brought to the cardiac catheterization lab in the fasting state. The left subclavian fossa was sterilely prepped and draped. Subclavian venogram was performed. Using a 10 blade an incision was made through the skin. Using combination of sharp blunt dissection and the Bovie catheter pacemaker pocket was created and a bacitracin soaked sponge was placed in the pocket. Using 18 gauge percutaneous needle x2 guidewires were advanced into the right heart under fluoroscopy. Using 7 Djiboutian safety sheaths leads were advanced into the RV septum and right atrial appendage. Sheaths were torn away. Leads were secured to the fascia using 0 Ethibond x2. Appropriate sensitivities and thresholds were confirmed. Bacitracin soaked sponge was removed from the pocket. It was copiously irrigated. Generator was delivered to the field and attached to the leads after confirming serial numbers. Setscrews were tightened per industry standards. The entire system was coiled into the pocket. Standard three-layer closure was used with insertion of D Stat for hemostasis. Pressure dressing was applied the patient is taken to recovery for continued care. Conclusions successful implantation of dual-chamber pacemaker. Biotronik Solla S 45 [id number] Atrial lead Biotronik Solla S 53 [id number] Ventricular lead Edora 8 Dr-T [id number] Serial Number [id number] Right atrial sensing was 2.6 mV. Capture was 0.8 volts with a pulse with a 0.4 milliseconds impedance was 468 Ohms. Right ventricular sensing was 9.7 mV. Capture was 0.4 volts with a pulse with a 0.4 milliseconds. Impedance was 565 Ohms. Patient Problems: Problems Problem Status Onset Sepsis Acute Pneumonia Acute Aortic stenosis Acute Mitral regurgitation Acute Elevated troponin Acute
--- NOTE | 2018-10-25 11:53 | CPEKG ---
Test Reason : OPEN Blood Pressure : / mmHG Vent. Rate : 049 BPM Atrial Rate : 049 BPM P-R Int : 209 ms QRS Dur : 162 ms QT Int : 524 ms P-R-T Axes : 076 070 041 degrees QTc Int : 474 ms Sinus bradycardia Right bundle branch block Probable left ventricular hypertrophy Confirmed by Geoffrey Mesa ([id number]) on 10/25/2018 11:53:10 AM Referred By: Confirmed By:Geoffrey Mesa
--- NOTE | 2018-10-25 12:30 | CPEKG ---
Test Reason : OPEN Blood Pressure : / mmHG Vent. Rate : 069 BPM Atrial Rate : 070 BPM P-R Int : 308 ms QRS Dur : 172 ms QT Int : 501 ms P-R-T Axes : 000 084 -48 degrees QTc Int : 537 ms Atrial-sensed ventricular-paced rhythm Confirmed by Geoffrey Mesa ([id number]) on 10/25/2018 12:29:59 PM Referred By: Confirmed By:Geoffrey Mesa
[2018-10-25] MEDS ORDERED: FUROSEMIDE 40 MG TAB PO ONE (12:55)
[2018-10-26 08:57] VITALS: BP 147/94
--- NOTE | 2018-10-26 11:17 | GDS ---
DISCHARGE DIAGNOSES: 1. Sick sinus syndrome, status post dual-chamber Biotronik pacemaker. 2. History of severe aortic stenosis. HOSPITAL COURSE: For detailed H and P, please see prior dictation. Briefly, the patient is an 83-ye ar-old male who presented to our office 1 week ago with bradycardia. He had been seen at his primary care physician's office and was noted to have heart rates in the 30s. The patient checks his blood pressure and heart rate regularly and had noted that his heart rate had dropped into the 30s for the past week or so. He denied any presyncope or syncope, but did note some lightheadedness in the morni ngs. He was not on any AV aly reducing agents. The decision was made to proceed with pacemaker placement. This was performed by Dr. Leonel Balderrama on October 25, 2018. He had a Biotronik dual-chamber pacemaker placed. The procedure was uncomplic ated. The following morning, he denied any significant discomfort over his pacer site. He was monit ored on telemetry and remained in normal sinus rhythm with intermittent pacing and PVCs. His EKG the day of discharge showed normal sinus rhythm with ventricular pacing. His chest x-ray showed small b ilateral pleural effusions with decreased pulmonary vascular congestion. He was given 1 dose of Lasi x yesterday due to heart failure. PHYSICAL EXAM: GENERAL: Patient appears in no acute distress. VITAL SIGNS: Blood pressure 147/94, heart rate 83, oxygen saturation of 96% on room air. Afebrile. LUNGS: Clear to auscultation. No wheezes, rhonchi, or crackles auscultated. CARDIAC: Regular rate and rhythm with a 3/6 murmur consi stent with aortic stenosis. CHEST WALL: His pacer site is clean, intact without any evidence of inf ection or hematoma. EXTREMITIES: No evidence of edema. DISCHARGE MEDICATIONS: His medications are unchanged. He will continue lisinopril 20 mg b.i.d., hyd rochlorothiazide 25 mg 4 days a week, vitamin B12, vitamin C. PLAN: The patient is currently stable and ready for discharge home. He has been given pacer precaut ions. He is scheduled for pacer interrogation and wound check at [facility] on November 01 at 1 :30 p.m. /[id number]/MODL
--- NOTE | 2018-10-26 12:00 | ASDISCHSUM ---
Discharge Information Plan Status:Home with No Needs Medically Cleared to Leave:10/25/2018 Discharge Date:10/25/2018 CM D/C Disposition:Home, Routine, Self-Care ADT D/C Disposition:Home, Routine, Self-Care Projected Discharge Date:10/25/2018 Transportation at D/C: Discharge Delay Reason: Follow-Up Date:10/25/2018 Discharge Slot: Final Diagnosis: Placement Information Patient Contact Information Contact Name:ARACELY Relationship: Address:[address] City:[facility] Phone: [facility]/Zip Code:[place] [address] Email: Financial Information Financial Class:Medicare Primary Plan Desc:MEDICARE OUTPATIENT Primary Plan Number:[id number] Secondary Plan Desc:[facility] Secondary Plan Number:[id number] Assessment Information LACE LACE Length of stay for Answers: Less than 1 day current admission Acuity / Level of Answers: No Care: Did the patient have an inpatient admission? Comorbidities - select Answers: Other Notes: HTN all that apply # of Emergency department Answers: 0 visits in the last 6 months Score: 1 Date Signed: 10/26/2018 11:57 AM Electronically Signed By:Nakia Covington RN Case Management Discharge Plan Note Case Management Discharge Discharge Order Complete? Answers: Yes Patient to Obtain Answers: via Family Medications Transportation Arranged Answers: Family/Friends Discharge Comments Notes: 10/26/2018 Case Management Note PT has cleared pt to return home without services. Pt has used [facility] in the past. No other case management d/c needs identified. Case Management d/c poc: Independent with follow up as directed. Date Signed: 10/26/2018 11:59 AM Electronically Signed By:Nakia Covington RN Intervention Information Intervention Type:No Admission Order Date of Service:10/25/2018 03:06 PM Patient Type:Observation Staff Member:Tram Juarez Hours: Discipline: Severity: Comment:call to PCU to get admit order Intervention Type:*MIKO-Signed Date of Service:10/26/2018 09:49 AM Patient Type:Observation Staff Member:Nehal Luo Hours: Discipline: Severity: Comment:
--- NOTE | 2018-10-26 16:37 | CPEKG ---
Test Reason : OPEN Blood Pressure : / mmHG Vent. Rate : 078 BPM Atrial Rate : 078 BPM P-R Int : 310 ms QRS Dur : 162 ms QT Int : 444 ms P-R-T Axes : 038 087 -46 degrees QTc Int : 506 ms Ventricular-paced complexes Confirmed by Geoffrey Mesa ([id number]) on 10/26/2018 4:37:41 PM Referred By: Confirmed By:Geoffrey Mesa
== END 2018-10-26 12:39 | disposition home or self-care (01) ==
LOC: FCATH 07:30 → F2W 12:02
PROVIDERS: ADMIT Internal Medicine Interventional Cardiology; ATTEND Internal Medicine Cardiovascular Disease
DX: I49.5 Sick sinus syndrome (principal); I35.0 Nonrheumatic aortic (valve) stenosis; I34.0 Nonrheumatic mitral (valve) insufficiency; J81.0 Acute pulmonary edema; M54.12 Radiculopathy, cervical region; I10 Essential (primary) hypertension; G62.9 Polyneuropathy, unspecified; I25.10 Atherosclerotic heart disease of native coronary artery without angina pectoris; Z96.643 Presence of artificial hip joint, bilateral
CPT/HCPCS: 33208; 71045; 71046; 93005; 97162; A4649; C1785; C1898; G8978; G8979; G8980; J0690; J2250; J3010; Q9967